=== PATIENT | female | born 1980 | race Two or more races ===

== ENCOUNTER 2020-10-13 08:30 | Emergency (ER) | payer SELFPAY ==
[~2020-10-13] VITALS: Ht 165.1 cm; Wt 58.0 kg
[2020-10-13] MEDS ORDERED: DIPHENHYDRAMINE 50MG/ML VIAL IM STA (09:00)
[2020-10-13] MEDS ORDERED: SODIUM CHLORIDE 0.9% 1,000 ML IV ONE (09:00)
[2020-10-13] MEDS ORDERED: LORAZEPAM 2MG/ML CPJ IM STA (09:00)
[2020-10-13] MEDS ORDERED: HALOPERIDOL LACTATE 5MG/ML VIAL IM STA (09:00)
[2020-10-13 09:12] LABS: BASOPHILS % 0.6 % (0.0-2.0); EOSINOPHILS % 0.4 % (0.0-5.0); HEMATOCRIT. 33.4 % (36.0-48.0); HEMOGLOBIN. 11.5 g/dL (12.0-16.0); LYMPHOCYTES % 15.9 % (20.0-50.0); MEAN CORPUSCULAR HEMOGLOBIN 32.4 pg (28.0-32.0); MEAN CORPUSCULAR VOLUME 94.2 fL (81.0-99.0); NEUTROPHILS % 77.1 % (40.0-76.0); PLATELET 326 x1000/uL (130-400); RED BLOOD CELL COUNT 3.55 mill/uL (4.2-5.4); RED CELL DISTRIBUTION WIDTH 13.6 % (11.6-14.6)
[2020-10-13 09:28] LABS: CHLORIDE 106 mEq/L (98-107)
[2020-10-13 09:33] LABS: ETHANOL BLOOD < 10 mg/dL
[2020-10-13 09:40] LABS: HCG SCREEN NEGATIVE
[2020-10-13 10:38] LABS: *AMPHETAMINES SCREEN URINE NEGATIVE (NEGATIVE); *BARBITURATES SCREEN URINE NEGATIVE (NEGATIVE); *COCAINE SCREEN URINE NEGATIVE (NEGATIVE)
[2020-10-13 10:39] LABS: METHADONE URINE SCREEN NEGATIVE (NEGATIVE); OPIATES URINE SCREEN NEGATIVE (NEGATIVE); PHENCYCLIDINE URINE SCREEN NEGATIVE (NEGATIVE)
[2020-10-13 10:50] LABS: *BENZODIAZEPINES SCREEN URINE PRESUMTIVE POSITIVE (NEGATIVE); CANNABINOID URINE SCREEN PRESUMTIVE POSITIVE (NEGATIVE)
[2020-10-13] MEDS ORDERED: POTASSIUM CHLORIDE 20MEQ TABLET SR PO NR (13:00)
[2020-10-13 14:28] VITALS: BP 125/85
== END 2020-10-13 15:10 | disposition home or self-care (01) ==
LOC: ER 08:30
DX: F43.0 Acute stress reaction (principal); E87.6 Hypokalemia; F17.200 Nicotine dependence, unspecified, uncomplicated; Z98.890 Other specified postprocedural states
CPT/HCPCS: 36415; 80053; 80305; 80307; 80320; 80329; 82140; 83690; 84703; 85025; 93005; 96360; 96361; 96372; 99285; J1200; J1630; J2060; J7030; Z7610; G0480